=== PATIENT | female | born 1960 | race Caucasian/White ===

== ENCOUNTER 2016-05-30 19:01 | Inpatient (IN) | payer MEDICAID, OTHER ==
[~2016-05-30] VITALS: Ht 152.4 cm; Wt 66.4 kg
[~2016-05-30 19:01] MED LIST: HYDR-762 PO; ORPH100T PO; ZOF8 PO; [UNRECOGNIZED DRUG - CODE] PO
[2016-05-30] MEDS ORDERED: PANTOPRAZOLE 40 MG INJ IV STA (20:40)
[2016-05-30 21:07] LABS: BASOPHIL # 0.1 10^3/ul (0.0-0.1); BASOPHILS % 0.8 % (0.0-2.0); EOSINOPHILS % 0.2 % (0.0-7.0); HEMATOCRIT 38.8 % (37.0-47.0); HEMOGLOBIN 12.8 g/dl (12.0-16.0); LYMPHOCYTES # 2.8 10^3/ul (0.8-2.9); LYMPHOCYTES % 24.7 % (15.0-51.0); MEAN CORPUSCULAR HEMOGLOBIN 28.9 pg (29.0-33.0); MEAN CORPUSCULAR HGB CONC 33.1 g/dl (32.0-37.0); MEAN CORPUSCULAR VOLUME 87.3 fl (82.0-101.0); MEAN PLATELET VOLUME 8.6 fl (7.4-10.4); MONOCYTE # 0.3 10^3/ul (0.3-0.9); MONOCYTES % 2.6 % (0.0-11.0); NEUTROPHIL # 8.2 10^3/ul (1.6-7.5); NEUTROPHILS % 71.7 % (39.0-77.0); PLATELET COUNT 153 10^3/UL (140-440); RED BLOOD COUNT 4.44 10^6/ul (4.20-5.40); RED CELL DISTRIBUTION WIDTH 15.6 % (11.5-14.5); UNCORRECTED WBC 11.4 10^3/ul (4.8-10.8); WHITE BLOOD COUNT 11.4 10^3/ul (4.8-10.8)
[2016-05-30 21:10] LABS: CONDITION 1; LH ANALYZER COMMENTS 1
[2016-05-30 21:17] LABS: INR 1.11; PROTIME 14.3 Sec (12.2-14.2); PT RATIO 1.1
[2016-05-30 21:18] LABS: PARTIAL THROMBOPLASTIN TIME 30.4 Sec (25.0-35.0)
--- NOTE | 2016-05-30 21:20 | RADRPT ---
PROCEDURE: XR Chest. CLINICAL INDICATION: Possible upper GI bleed TECHNIQUE: Single frontal view of the chest was obtained COMPARISON: 07/20/2014. FINDINGS: The heart and mediastinum are within normal limits. The lungs are clear. There is no pleural effusion or pneumothorax. IMPRESSION: No acute disease. RPTAT: [facility] Physician Araceli Date Time Electronically viewed and signed by Hemant Benedict Physician on 05/30/2016 21:20 RS/
[2016-05-30 21:40] LABS: ALBUMIN 3.6 g/dl (3.3-4.9); CHLORIDE 107 mmol/L (97-110)
[2016-05-30 21:41] LABS: POTASSIUM 4.2 mmol/L (3.5-5.1); SODIUM 143 mmol/L (135-144)
[2016-05-30 21:43] LABS: ALKALINE PHOSPHATASE 109 IU/L (42-121); ANION GAP 17 (8-16); ASPARTATE AMINO TRANSFERASE 65 IU/L (15-46); BILIRUBIN,INDIRECT 0.7 mg/dl (0-1.1); BILIRUBIN,TOTAL 0.7 mg/dl (0.2-1.3); CARBON DIOXIDE 23 mmol/L (21-31); CREATININE 0.58 mg/dl (0.44-1.00); TOTAL PROTEIN 7.6 g/dl (6.1-8.1)
[2016-05-30 21:44] LABS: ALANINE AMINOTRANSFERASE 51 IU/L (13-69); BLOOD UREA NITROGEN 35 mg/dl (7-20); CALCIUM 8.4 mg/dl (8.4-10.2); GLUCOSE 144 mg/dl (70-220)
[2016-05-30 21:56] LABS: TROPONIN-I < 0.012 ng/ml (0.00-0.12)
[2016-05-30] MEDS ORDERED: METF-382 PO (22:02)
[2016-05-30] MEDS ORDERED: ONDA8TAB83 PO (22:02)
[2016-05-30] MEDS ORDERED: CYCL-319 PO (22:03)
[2016-05-30] MEDS ORDERED: GABA300C16 PO (22:03)
[2016-05-30] MEDS ORDERED: BISA5TAB6 PO (22:04)
[2016-05-30] MEDS ORDERED: NAPR-688 PO (22:04)
[2016-05-30] MEDS ORDERED: CEPH500C PO (22:05)
--- NOTE | 2016-05-30 23:31 | ERA ---
ER Documentation Chief Complaint Date/Time DATE: 05/30/16 TIME: 20:45 Chief Complaint vomiting, abd pain secondary to abx tx s/p back surgery HPI 55-year-old female with a history of diabetes mellitus type 2, hep C from a blood transfusion and liver cirrhosis, status post lumbar disc surgery 2016 ambulatory to the ED complaining of a 1 day history of nausea with multiple episodes of hematemesis today. Denies abdominal pain, diarrhea or melanotic stools. No history of GI bleeding or esophageal varices. Denies chest pain or palpitations. No shortness of breath or cough. No fevers or chills. ROS All systems reviewed and are negative except as per history of present illness. Medications Home Meds Reported Medications Cephalexin* (Cephalexin*) 500 Mg Capsule, 500 MG PO TID, #28 CAP FOR 2 WEEKS 05/30/16 Bisacodyl* (Bisacodyl*) 5 Mg Tablet.dr, 5 MG PO DAILY Y for DIRECTED, TAB 05/30/16 Naproxen* (Naproxen*) 500 Mg Tablet, 500 MG PO BID, TAB 05/30/16 Gabapentin* (Gabapentin*) 300 Mg Capsule, 300 MG PO BID, #60 CAP 05/30/16 Cyclobenzaprine Hcl* (Cyclobenzaprine Hcl*) 10 Mg Tablet, 10 MG PO QHS, #60 TAB 05/30/16 Metformin Hcl* (Metformin Hcl*) 500 Mg Tablet, 500 MG PO WITH BREAKFAST DINNE, # 60 TAB 05/30/16 Ondansetron Hcl* (Ondansetron Hcl*) 8 Mg Tablet, 8 MG PO DAILY Y for NAUSEA AND OR VOMITING, TAB 05/30/16 Discontinued Reported Medications Ondansetron Hcl* (Zofran* ODT) 8 mg -ODT Tab.disper, 8 MG PO Q6H Y for NAUSEA AND OR VOMITING, TAB 07/21/14 Orphenadrine Citrate (Norflex) 100 Mg Tablet.sa, 100 MG PO Q12, TAB.SA 07/21/14 Diclofenac Sodium* (Voltaren* XR) 100 Mg Tab.sr.24h, 100 MG PO, TAB.SA 07/21/14 Hydrocodone Bit-Acetaminophen* (Marshall*) 10-325 Mg Tablet, 1 TAB PO DAILY for PAIN, TAB 07/21/14 Allergies Allergies: Coded Allergies: erythromycin base (Verified Allergy, Intermediate, NAUSEA, DIARRHEA, SICK , 05/30/16) PMhx/Soc Reviewed in chart. As per HPI. History of Surgery: Yes (back surgery 07/17/14, back surgery Apr 2016) Anesthesia Reaction: No Hx Neurological Disorder: No Hx Respiratory Disorders: No Hx Cardiac Disorders: No Hx Psychiatric Problems: No Hx Miscellaneous Medical Probl: Yes (DM2, hepatitis C, liver cirrhosis) Hx Alcohol Use: Yes (quit drinking 35 years ago) Hx Substance Use: No Hx Tobacco Use: Yes (2-3 cigarettes/ day) Smoking Status: Current every day smoker FmHx No cancer or stroke Physical Exam Vitals Vital Signs Date Time Temp Pulse Resp B/P Pulse Ox O2 Delivery O2 Flow Rate FiO2 05/30/16 20:57 Nasal Cannula 2 05/30/16 20:37 98.8 91 20 127/71 99 Room Air 05/30/16 19:06 98.7 86 20 118/74 98 Physical Exam Const: Alert, no acute distress. Head: Atraumatic Eyes: Normal Conjunctiva ENT: Normal External Ears, Nose and Mouth. Neck: Full range of motion. Nontender. Resp: Breath sounds are equal and clear to auscultation bilaterally Cardio: Regular rate and rhythm, no murmurs Abd: Soft, non tender, non distended. Normal bowel sounds. No masses or abnormal pulsations. Skin: No petechiae or rashes Back: No midline or flank tenderness. Healing lumbar incision. No purulent drainage or tenderness. Ext: No cyanosis, or edema Neur: Awake and alert. No focal deficit observed. Psych: Normal Mood and Affect Result Diagram: 05/31/1662105/31/16621 Results 24 hrs Laboratory Tests Test 05/30/16 03:00 05/30/16 20:50 Stool Occult Blood POSITIVE Activated Partial Thromboplast Time 30.4Sec Alanine Aminotransferase (ALT/SGPT) 51IU/L Albumin 3.6g/dl Albumin/Globulin Ratio 0.90 Alkaline Phosphatase 109IU/L Anion Gap 17 Aspartate Amino Transf (AST/SGOT) 65IU/L Basophils # 0.110^3/ul Basophils % 0.8% Blood Morphology Comment Blood Urea Nitrogen 35mg/dl Calcium Level 8.4mg/dl Carbon Dioxide Level 23mmol/L Chloride Level 107mmol/L Creatinine 0.58mg/dl Direct Bilirubin 0.00mg/dl Eosinophils # 0.010^3/ul Eosinophils % 0.2% Globulin 4.00g/dl Glucose Level 144mg/dl Hematocrit 38.8% Hemoglobin 12.8g/dl INR International Normalized Ratio 1.11 Indirect Bilirubin 0.7mg/dl Lymphocytes # 2.810^3/ul Lymphocytes % 24.7% Mean Corpuscular Hemoglobin 28.9pg Mean Corpuscular Hemoglobin Concent 33.1g/dl Mean Corpuscular Volume 87.3fl Mean Platelet Volume 8.6fl Monocytes # 0.310^3/ul Monocytes % 2.6% Neutrophils # 8.210^3/ul Neutrophils % 71.7% Nucleated Red Blood Cells # 0.010^3/ul Nucleated Red Blood Cells % 0.0/100WBC Platelet Count 31294^3/UL Potassium Level 4.2mmol/L Prothrombin Time 14.3Sec Prothrombin Time Ratio 1.1 Red Blood Count 4.4410^6/ul Red Cell Distribution Width 15.6% Sodium Level 143mmol/L Total Bilirubin 0.7mg/dl Total Protein 7.6g/dl Troponin I < 0.012ng/ml White Blood Count 11.410^3/ul Current Medications Medications (Trade) Dose Ordered Sig/Lexx Route PRN Reason Start Time Stop Time Status Last Admin Dose Admin Pantoprazole (Protonix Iv) 40 mg ONCE STAT IV 05/30/16 20:40 05/30/16 20:41 DC 05/30/16 21:03 Procedures/MDM DOCUMENTS REVIEWED: ED nurse, prior records MEDICAL DECISION MAKIN-year-old female with a history of diabetes mellitus type 2, hep C from a blood transfusion and liver cirrhosis, status post lumbar disc surgery 05/19/2016 ambulatory to the ED complaining of a 1 day history of nausea with multiple episodes of hematemesis today. Patient vomited approximately 100 cc of dark blood in triage but no active bleeding currently. Vital signs are stable. H&H is normal. Protonix given. Abdominal exam is unremarkable. Patient will be admitted to [facility] for GI consultation, further evaluation and management. Counseled patient regarding diagnosis, diagnostic results and plan for admission. CALLS/CONSULTS: Time 23:23 Dr. Jefferson, admit to Tele. PATIENT CARE TRANSITIONED: Time: 23:25 Dr. Jefferson. Departure Diagnosis: Primary Impression: Upper GI bleed Additional Impressions: Liver cirrhosis Qualified Code: K74.60 - Cirrhosis of liver without ascites, unspecified hepatic cirrhosis type Hepatitis C Qualified Code: B19.20 - Hepatitis C virus infection without hepatic coma, unspecified chronicity Diabetes mellitus type 2 in obese Condition: Serious LELE KRAMER MD May 30, 2016 23:29
[2016-05-31] VITALS (22 sets, daily range): BP systolic 81–195; BP diastolic 41–79; PULSE 72–106; RESP 14–20; TEMP 98.2; Ht 152.4 cm; Wt 66.4 kg
[2016-05-31] MEDS ORDERED: ONDANSETRON 4 MG INJ IV PRN
[2016-05-31] MEDS ORDERED: ACETAMINOPHEN 325 MG TAB PO PRN ×2 (02:30)
[2016-05-31] MEDS ORDERED: ONDANSETRON INJ 8 MG in DEXTROSE 5% 50 ML IV PRN (02:30)
[2016-05-31] MEDS ORDERED: BISACODYL (EC) 5 MG TAB PO PRN (02:30)
[2016-05-31] MEDS ORDERED: morphine 4 MG/ML VIAL IV PRN (02:30)
[2016-05-31] MEDS ORDERED: SOD CHLORIDE 0.9% 500 ML IV ONE (02:30)
[2016-05-31] MEDS ORDERED: GLUCAGON 1 MG INJ IM PRN (02:45)
[2016-05-31] MEDS ORDERED: DEXTROSE 50% 50 ML SYRINGE IV PRN ×2 (02:45)
[2016-05-31] MEDS ORDERED: GLUCOSE GEL 15 GRAM TUBE PO PRN ×2 (02:45)
[2016-05-31] MEDS ORDERED: GLUCOSE GEL 15 GRAM TUBE BUCCAL PRN (02:45)
[2016-05-31] MEDS: DEXTROSE 5%-0.45% NACL 1,000 ML IV SCH ×3 (02:54→22:30)
[2016-05-31] MEDS: LEVOFLOXACIN 500MG/D5W (PMX) 100 ML IVPB SCH (03:44)
[2016-05-31] MEDS ORDERED: PANTOPRAZOLE 40 MG INJ IV SCH (06:00)
[2016-05-31 07:03] LABS: BASOPHILS % 0.4 % (0.0-2.0); EOSINOPHILS % 0.3 % (0.0-7.0); HEMOGLOBIN 10.7 g/dl (12.0-16.0); LYMPHOCYTES # 2.6 10^3/ul (0.8-2.9); MEAN CORPUSCULAR HEMOGLOBIN 29.1 pg (29.0-33.0); MEAN CORPUSCULAR HGB CONC 33.4 g/dl (32.0-37.0); MEAN CORPUSCULAR VOLUME 87.1 fl (82.0-101.0); MEAN PLATELET VOLUME 8.6 fl (7.4-10.4); MONOCYTE # 0.4 10^3/ul (0.3-0.9); MONOCYTES % 5.9 % (0.0-11.0); NEUTROPHIL # 4.1 10^3/ul (1.6-7.5); NEUTROPHILS % 57.4 % (39.0-77.0); PLATELET COUNT 112 10^3/UL (140-440); RED BLOOD COUNT 3.67 10^6/ul (4.20-5.40); RED CELL DISTRIBUTION WIDTH 15.6 % (11.5-14.5); UNCORRECTED WBC 7.2 10^3/ul (4.8-10.8); WHITE BLOOD COUNT 7.2 10^3/ul (4.8-10.8)
[2016-05-31 07:07] LABS: CONDITION 1; LH ANALYZER COMMENTS 1
[2016-05-31 07:28] LABS: POTASSIUM 3.6 mmol/L (3.5-5.1)
[2016-05-31 07:31] LABS: CREATININE 0.56 mg/dl (0.44-1.00)
[2016-05-31 07:32] LABS: CALCIUM 8.4 mg/dl (8.4-10.2)
[2016-05-31] MEDS: INSULIN ASPART [NOVOLOG] 3 ML PEN SC SCH ×4 (07:55→21:00)
[2016-05-31] MEDS: GABAPENTIN 300 MG CAP PO SCH ×2 (09:13→21:10)
[2016-05-31] MEDS: INSULIN GLARGINE [LANtus] 3 ML PEN SC SCH (09:17)
--- NOTE | 2016-05-31 10:17 | CONS ---
Date/Time of Note Date/Time of Note DATE: 05/31/16 TIME: 10:15 Assessment/Plan Assessment/Plan Additional Assessment/Plan Anemia Hematemesis * EGD today with Dr. Veronica * Monitor hemoglobin every 6 hours, transfuse 2 units for hemoglobin less than 7.5 * PPI therapy Hepatitis C * Patient to start treatment outpatient Diabetes * Per patient well controlled with diet Further recommendations depend on clinical course Patient seen in collaboration with Dr. Veronica Consultation Date/Type/Reason Admit Date/Time May 30, 2016 at 23:31 Type of Consultation: Gastroenterology Reason for Consultation Hematemesis Hx of Present Illness 55-year-old female patient reports 2 episodes of hematemesis. Patient stated symptoms started abruptly last night. She denies previous episode, abdominal pain, diarrhea, fever, chills, shortness of breath, and alcohol abuse. Patient states she uses NSAIDs for back pain and reports that most 2 Aleve at night per day. Patient also reports recent history of melena stools for the last few days. Patient has past medical history of Hep C s/p blood transfusion in 1979 after giving in addition to diabetes which is well controlled with diet. Recommend EGD for further evaluation. Advised patient of risks/benefits/ alternatives to procedure patient is agreeable to proceed. Past Medical History Medical History: diabetes, other (Hepatitis C) Past Surgical History Past Surgical Hx: other (Back surgery) Social History Alcohol Use: rarely Smoking Status: Current every day smoker Exam/Review of Systems Vital Signs Vitals Vital Signs Date Time Temp Pulse Resp B/P Pulse Ox O2 Delivery O2 Flow Rate FiO2 05/31/16 08:20 80 05/31/16 04:00 98.0 18 106/60 98 05/31/16 01:45 Room Air 05/30/16 20:57 2 Intake and Output 05/30/16 05/30/16 05/31/16 15:00 23:00 07:00 Intake Total 225 ml Balance 225 ml Exam Constitutional: alert, oriented, well developed Psych: nl mood/affect Head: atraumatic Eyes: EOMI ENMT: nl external ears & nose, nl lips & teeth, nl nasal mucosa & septum Respiratory: normal air movement Cardiovascular: regular rate and rhythm Gastrointestinal: non-tender, soft Results Result Diagram: 05/31/16 0622 05/31/16621 Results 24 hrs Laboratory Tests Test 05/30/16 20:50 2/1/17 01:50 05/31/16 06:22 05/31/16 07:30 Activated Partial Thromboplast Time 30.4 Alanine Aminotransferase (ALT/SGPT) 51 Albumin 3.6 Albumin/Globulin Ratio 0.90 Alkaline Phosphatase 109 Anion Gap 17 H 16 Aspartate Amino Transf (AST/SGOT) 65 H Basophils # 0.1 0.0 Basophils % 0.8 0.4 Blood Morphology Comment Blood Urea Nitrogen 35 H 31 H Calcium Level 8.4 8.4 Carbon Dioxide Level 23 23 Chloride Level 107 109 Creatinine 0.58 0.56 Direct Bilirubin 0.00 Eosinophils # 0.0 0.0 Eosinophils % 0.2 0.3 Globulin 4.00 H Glucose Level 144 127 Hematocrit 38.8 32.0 L Hemoglobin 12.8 10.7 L INR International Normalized Ratio 1.11 Indirect Bilirubin 0.7 Lymphocytes # 2.8 2.6 Lymphocytes % 24.7 36.0 Mean Corpuscular Hemoglobin 28.9 L 29.1 Mean Corpuscular Hemoglobin Concent 33.1 33.4 Mean Corpuscular Volume 87.3 87.1 Mean Platelet Volume 8.6 8.6 Monocytes # 0.3 0.4 Monocytes % 2.6 5.9 Neutrophils # 8.2 H 4.1 Neutrophils % 71.7 57.4 Nucleated Red Blood Cells # 0.0 0.0 Nucleated Red Blood Cells % 0.0 0.0 Platelet Count 153 # 112 #L Potassium Level 4.2 3.6 Prothrombin Time 14.3 H Prothrombin Time Ratio 1.1 Red Blood Count 4.44 3.67 L Red Cell Distribution Width 15.6 H 15.6 H Sodium Level 143 144 Total Bilirubin 0.7 Total Protein 7.6 Troponin I < 0.012 White Blood Count 11.4 #H 7.2 # Bedside Glucose 120 132 Medications Medications Current Medications Ondansetron HCl/ Dextrose (Zofran Inj/D5W) 54 ml @ 108 mls/hr Q6H PRN IV NAUSEA AND/OR VOMITING; Start 05/31/16 at 02:30 Pantoprazole 40 mg 40 mg BID@06,18 IV Last administered on 05/31/16t 05:20; Admin Dose 40 MG; Start 05/31/16 at 06:00 Dextrose/Sodium Chloride (D5-1/2ns) 1,000 ml @ 100 mls/hr Q10H IV Last administered on 05/31/16 02:54; Admin Dose 100 MLS/HR; Start 05/31/16 at 02:30 Morphine Sulfate (morphine) 3 mg Q4H PRN IV PAIN; Start 05/31/16 at 02:30 Bisacodyl (Dulcolax) 5 mg DAILY PRN PO DIRECTED; Start 05/31/16 at 02:30 Cyclobenzaprine HCl (Flexeril) 10 mg QHS PO ; Start 05/31/16 at 21:00 Gabapentin 300 mg 300 mg BID PO Last administered on 05/31/16 09:13; Admin Dose 300 MG; Start 05/31/16 at 09:00 Levofloxacin/ Dextrose (Levaquin 500mg/ D5W 100 ml (Pmx)) 100 ml @ 100 mls/hr Q24H IVPB Last administered on 05/31/16 03:44; Admin Dose 100 MLS/HR; Start 05/31/16 at 03:00 Insulin Glargine (Lantus) 10 unit DAILY@08 SC Last administered on 05/31/16 09: 17; Admin Dose 10 UNIT; Start 05/31/16 at 08:00 Diagnostic Test (Pha) (Accucheck) 1 ea 02 XX ; Start 06/01/16 at 02:00 Acetaminophen (Tylenol Tab) 650 mg Q6H PRN PO PAIN AND OR ELEVATED TEMP; Start 05/31/16 at 02:30 Miscellaneous Information 1 ea NOTE XX ; Start 05/31/16 at 02:45 Glucose (Glutose) 15 gm Q15M PRN PO DECREASED GLUCOSE; Start 05/31/16 at 02:45 Glucose (Glutose) 22.5 gm Q15M PRN PO DECREASED GLUCOSE; Start 05/31/16 at 02:45 Dextrose (D50w Syringe) 25 ml Q15M PRN IV DECREASED GLUCOSE; Start 05/31/16 at 02:45 Dextrose (D50w Syringe) 50 ml Q15M PRN IV DECREASED GLUCOSE; Start 05/31/16 at 02:45 Glucagon (Glucagen) 1 mg Q15M PRN IM DECREASED GLUCOSE; Start 05/31/16 at 02:45 Glucose (Glutose) 15 gm Q15M PRN BUCCAL DECREASED GLUCOSE; Start 05/31/16 at 02: 45 JENY CREWS 1, 2017 10:17
--- NOTE | 2016-05-31 10:29 | HP ---
DATE OF ADMISSION: 05/30/2016 TIME SEEN: 2330. CHIEF COMPLAINT: Vomiting blood. HISTORY OF PRESENT ILLNESS: The patient is a 55-year-old female with a history of diabetes, hepatiti s C, liver cirrhosis, who presented to the emergency department with chief complaint of vomiting blo od. She said she has had multiple episodes of hematemesis for 1 day. She denied a history of GI ble ed or esophageal varices. She had lumbar surgery a week ago with limited results. She also complains of abdominal pain which she attributed to the antibiotic that she was given because she had lumbar surgery 10 days ago. The patient has no other complaints. She said that she acquired hepatitis C fr om a blood transfusion. When she presents to the ER vitals were stable. Hemoglobin almost 13. WBC 11.4, BUN 35, AST 55, ot herwise CBC and CMP are within normal limits. Chest x-ray no active disease. REVIEW OF SYSTEMS: A 12 point review of systems was performed and negative except as mentioned in HP I. PAST MEDICAL HISTORY: As per HPI. SOCIAL HISTORY: No tobacco, alcohol, or illicit drug use. ALLERGIES: ERYTHROMYCIN. HOME MEDICATION: 1. given cephalexin. 2. Cyclobenzaprine. 3. Gabapentin. 4. Naproxen. 5. Dulcolax. 6. Zofran. 7. Metformin. PHYSICAL EXAMINATION: VITAL SIGNS: Blood pressure 127/71, heart rate 91, respiration rate 20, temperature 98.8. Oxygen sa turation 99% on room air. Vitals stable. GENERAL: No acute distress. Neck was supple. Alert and oriented. HEENT: No obvious head deformity. Pupils equal, round and react to light. Extraocular muscles intac t. CARDIOVASCULAR: Tachycardic with regular rhythm. LUNGS: Clear. ABDOMEN: Soft. There is minimal tenderness diffusely to deep palpation with no guarding, rebound te nderness, no rigidity. EXTREMITIES: No edema. NEUROLOGIC: No focal deficits. LABORATORY DATA: Pertinent positives as mentioned in the HPI. IMAGING: Chest x-ray: No active disease. IMPRESSION: 1. Hematemesis, likely from given history of cirrhosis. 2. Hepatitis C cirrhosis. 3. History of diabetes. 4. History of recent lumbar surgery. PLAN: We will keep n.p.o. We will monitor her hemoglobin closely. We will place a GI consult. She will be placed on an IV PPI. We will monitor her vitals closely. For diabetes she will be on insul in while in house. Further workup and management per clinical course. Dictated By: KIMBER FLORES/MANDY Conf#: [id number] DID#: [id number]
[2016-05-31] MEDS: PANTOPRAZOLE IV 80 MG in SOD CHLORIDE 0.9% 100 ML IV SCH ×2 (12:34→22:33)
--- NOTE | 2016-05-31 15:18 | PN ---
Date/Time of Note Date/Time of Note DATE: 05/31/16 TIME: 15:02 Assessment/Plan VTE Prophylaxis VTE Prophylaxis Intervention: SCD's Lines/Catheters IV Catheter Type (from Nrs): Peripheral IV Urinary Cath still in place: No Assessment/Plan Chief Complaint/Hosp Course 1. Hematemesis with melena 2/2 NSAID use vs Varices from possible Cirrhosis -GI consult appreciated, plan is for EGD today 2. Hepatitis C cirrhosis -plan is for out-pt Rx 3. History of diabetes -cont Insulin, NISS 4. History of recent lumbar surgery pain control PPx- SCD's Problems: Subjective 24 Hr Interval Summary Constitutional: no complaints Exam/Review of Systems Vital Signs Vitals Vital Signs Date Time Temp Pulse Resp B/P Pulse Ox O2 Delivery O2 Flow Rate FiO2 05/31/16 12:20 77 05/31/16 11:40 98.2 19 91/53 98 05/31/16 01:45 Room Air 05/30/16 20:57 2 Intake and Output 05/30/16 05/30/16 05/31/16 15:00 23:00 07:00 Intake Total 225 ml Balance 225 ml Exam Constitutional: alert, oriented Respiratory: clear to auscultation Cardiovascular: regular rate and rhythm Gastrointestinal: soft, No distended Musculoskeletal: nl extremities to inspection Results Result Diagram: 05/31/1662105/31/16 0622 Results 24 hrs Laboratory Tests Test 05/30/16 20:50 05/31/16 01:50 05/31/16 06:22 05/31/16 07:30 Activated Partial Thromboplast Time 30.4 Alanine Aminotransferase (ALT/SGPT) 51 Albumin 3.6 Albumin/Globulin Ratio 0.90 Alkaline Phosphatase 109 Anion Gap 17 H 16 Aspartate Amino Transf (AST/SGOT) 65 H Basophils # 0.1 0.0 Basophils % 0.8 0.4 Blood Morphology Comment Blood Urea Nitrogen 35 H 31 H Calcium Level 8.4 8.4 Carbon Dioxide Level 23 23 Chloride Level 107 109 Creatinine 0.58 0.56 Direct Bilirubin 0.00 Eosinophils # 0.0 0.0 Eosinophils % 0.2 0.3 Globulin 4.00 H Glucose Level 144 127 Hematocrit 38.8 32.0 L Hemoglobin 12.8 10.7 L INR International Normalized Ratio 1.11 Indirect Bilirubin 0.7 Lymphocytes # 2.8 2.6 Lymphocytes % 24.7 36.0 Mean Corpuscular Hemoglobin 28.9 L 29.1 Mean Corpuscular Hemoglobin Concent 33.1 33.4 Mean Corpuscular Volume 87.3 87.1 Mean Platelet Volume 8.6 8.6 Monocytes # 0.3 0.4 Monocytes % 2.6 5.9 Neutrophils # 8.2 H 4.1 Neutrophils % 71.7 57.4 Nucleated Red Blood Cells # 0.0 0.0 Nucleated Red Blood Cells % 0.0 0.0 Platelet Count 153 # 112 #L Potassium Level 4.2 3.6 Prothrombin Time 14.3 H Prothrombin Time Ratio 1.1 Red Blood Count 4.44 3.67 L Red Cell Distribution Width 15.6 H 15.6 H Sodium Level 143 144 Total Bilirubin 0.7 Total Protein 7.6 Troponin I < 0.012 White Blood Count 11.4 #H 7.2 # Bedside Glucose 120 132 Test 05/31/16 11:05 Bedside Glucose 128 Medications Medications Current Medications Ondansetron HCl 8 mg/Dextrose 54 ml @ 108 mls/hr Q6H PRN IV NAUSEA AND/OR VOMITING; Start 05/31/16 at 02:30 Dextrose/Sodium Chloride (D5-1/2ns) 1,000 ml @ 100 mls/hr Q10H IV Last administered on 05/31/16 12:34; Admin Dose 100 MLS/HR; Start 05/31/16 at 02:30 Morphine Sulfate (morphine) 3 mg Q4H PRN IV PAIN; Start 05/31/16 at 02:30 Bisacodyl (Dulcolax) 5 mg DAILY PRN PO DIRECTED; Start 05/31/16 at 02:30 Cyclobenzaprine HCl (Flexeril) 10 mg QHS PO ; Start 05/31/16 at 21:00 Gabapentin 300 mg 300 mg BID PO Last administered on 05/31/16 09:13; Admin Dose 300 MG; Start 05/31/16 at 09:00 Levofloxacin/ Dextrose (Levaquin 500mg/ D5W 100 ml (Pmx)) 100 ml @ 100 mls/hr Q24H IVPB Last administered on 05/31/16 03:44; Admin Dose 100 MLS/HR; Start 05/31/16 at 03:00 Insulin Glargine (Lantus) 10 unit DAILY@08 SC Last administered on 05/31/16 09: 17; Admin Dose 10 UNIT; Start 05/31/16 at 08:00 Diagnostic Test (Pha) (Accucheck) 1 ea 02 XX ; Start 06/01/16 at 02:00 Acetaminophen (Tylenol Tab) 650 mg Q6H PRN PO PAIN AND OR ELEVATED TEMP; Start 05/31/16 at 02:30 Miscellaneous Information 1 ea NOTE XX ; Start 05/31/16 at 02:45 Glucose (Glutose) 15 gm Q15M PRN PO DECREASED GLUCOSE; Start 05/31/16 at 02:45 Glucose (Glutose) 22.5 gm Q15M PRN PO DECREASED GLUCOSE; Start 05/31/16 at 02:45 Dextrose (D50w Syringe) 25 ml Q15M PRN IV DECREASED GLUCOSE; Start 05/31/16 at 02:45 Dextrose (D50w Syringe) 50 ml Q15M PRN IV DECREASED GLUCOSE; Start 05/31/16 at 02:45 Glucagon (Glucagen) 1 mg Q15M PRN IM DECREASED GLUCOSE; Start 05/31/16 at 02:45 Glucose 15 gm 15 gm Q15M PRN BUCCAL DECREASED GLUCOSE; Start 05/31/16 at 02:45 Pantoprazole/ Sodium Chloride (Protonix Iv/NS) 100 ml @ 10 mls/hr Q10H IV Last administered on 05/31/16 12:34; Admin Dose 10 MLS/HR; Start 05/31/16 at 12: 00 NATALIYA NATARAJAN May 31, 2016 15:12
[2016-05-31] MEDS ORDERED: SOD CHLORIDE 0.9% 1,000 ML IV ONE (16:00)
[2016-05-31] MEDS ORDERED: PROPOFOL 20 ML ONE (17:13)
[2016-05-31] MEDS ORDERED: MIDAZOLAM 1 MG/ML 2 ML INJ ONE (17:13)
[2016-05-31] MEDS ORDERED: FENTAnyl 50 MCG/ML VIAL ONE (17:13)
[2016-05-31] MEDS ORDERED: CYCLOBENZAPRINE 10 MG TAB PO SCH (21:00)
[2016-06-01] VITALS (7 sets, daily range): BP systolic 99–132; BP diastolic 52–77; PULSE 81–93; RESP 18–20
[2016-06-01] MEDS ORDERED: ACCUCHECK XX SCH (02:00)
[2016-06-01] MEDS: LEVOFLOXACIN 500MG/D5W (PMX) 100 ML IVPB SCH (03:11)
[2016-06-01] MEDS: DEXTROSE 5%-0.45% NACL 1,000 ML IV SCH ×2 (06:25→08:30)
--- NOTE | 2016-06-01 06:38 | GILP ---
DATE OF PROCEDURE: 05/31/2016 SURGEON: Kyle Veronica MD. PROCEDURE: Esophagogastroduodenoscopy with endoscopic variceal ligation and biopsies. PREMEDICATION: Monitored anesthesia care by anesthesiologist. TECHNIQUE: After informed consent, with the patient/relatives understanding the procedure, its indic ations, potential risks and complications, including but not limited to: allergic reaction, bleeding , perforation or infection, and after all pertinent questions were answered to the patients satisfac tion, the patient/relatives signed witnessed informed consent. Following this, premedication was administered slowly IV push under careful cardiovascular and respi ratory monitoring with pulse oximetry, automatic blood pressure and assistant analyst. Once the sedative effect was achieved the patient was place in the left lateral decubitus, the panen doscope was introduced and advanced under visual control. INSTRUMENT USED: Olympus panendoscope. Careful examination of the upper gastrointestinal tract, both on insertion as well as withdrawal of the instrument disclosed the following findings: ESOPHAGUS: The distal esophagus shows significant esophageal varices, greatest at III/IV. Upon completion of examination, the banding device was attached to the tip of the instrument and 4 b ands were applied without complications. STOMACH: Upon entrance into the stomach, air was insufflated, the gastric samayoa distended normally. There is congestion and erythema consistent with portal hypertensive gastropathy and there are sev eral ulcerations in the antrum of the stomach, which are small. Biopsies were obtained to rule out H. pylori infection. PYLORUS: The pylorus appears patent and within normal limits, with no evidence of gastric outlet obs truction. DUODENUM: The duodenal mucosa was carefully examined in the duodenal bulb as well as the second port ion of the duodenum and appears unremarkable with no evidence of duodenitis, ulcer or neoplasm. The instrument was then withdrawn, the patient tolerated the procedure well and was transfer out of the endoscopy suite awake, and in good condition to continue recovery under observation IMPRESSION: 1. Grade III/IV esophageal varices, post endoscopic variceal ligation. 2. Multiple small antral gastric ulcerations, rule out Helicobacter pylori infection. Biopsies wer e obtained. 3. Portal gastropathy. PLAN: The patient will be treated with PPIs. Pathology will be reviewed as soon as available EGD i n 3 months is recommended. Dictated By: KYLE VERONICA MS/MANDY Conf#: [id number] [facility]#: [id number]
[2016-06-01] MEDS: INSULIN ASPART [NOVOLOG] 3 ML PEN SC SCH ×2 (07:55→11:50)
[2016-06-01 08:24] LABS: BASOPHILS % 0.6 % (0.0-2.0); EOSINOPHILS # 0.1 10^3/ul (0.0-0.5); HEMATOCRIT 30.6 % (37.0-47.0); HEMOGLOBIN 10.5 g/dl (12.0-16.0); LYMPHOCYTES # 2.6 10^3/ul (0.8-2.9); LYMPHOCYTES % 55.8 % (15.0-51.0); MEAN CORPUSCULAR HEMOGLOBIN 30.4 pg (29.0-33.0); MEAN CORPUSCULAR HGB CONC 34.4 g/dl (32.0-37.0); MEAN CORPUSCULAR VOLUME 88.3 fl (82.0-101.0); MEAN PLATELET VOLUME 8.1 fl (7.4-10.4); MONOCYTE # 0.3 10^3/ul (0.3-0.9); MONOCYTES % 6.3 % (0.0-11.0); NEUTROPHIL # 1.7 10^3/ul (1.6-7.5); NEUTROPHILS % 35.3 % (39.0-77.0); PLATELET COUNT 99 10^3/UL (140-440); RED BLOOD COUNT 3.46 10^6/ul (4.20-5.40); RED CELL DISTRIBUTION WIDTH 15.5 % (11.5-14.5); UNCORRECTED WBC 4.7 10^3/ul (4.8-10.8); WHITE BLOOD COUNT 4.7 10^3/ul (4.8-10.8)
[2016-06-01 08:30] LABS: CONDITION 1; LH ANALYZER COMMENTS 1
[2016-06-01 08:39] LABS: POTASSIUM 3.7 mmol/L (3.5-5.1)
[2016-06-01 08:42] LABS: CREATININE 0.67 mg/dl (0.44-1.00)
[2016-06-01 08:43] LABS: CALCIUM 8.3 mg/dl (8.4-10.2); MAGNESIUM 1.8 mg/dl (1.7-2.5)
[2016-06-01] MEDS: PANTOPRAZOLE IV 80 MG in SOD CHLORIDE 0.9% 100 ML IV SCH (08:49)
[2016-06-01] MEDS: GABAPENTIN 300 MG CAP PO SCH (08:49)
[2016-06-01] MEDS: INSULIN GLARGINE [LANtus] 3 ML PEN SC SCH (09:51)
--- NOTE | 2016-06-01 09:54 | CONS ---
Date/Time of Note Date/Time of Note DATE: 06/01/16 TIME: 09:52 Assessment/Plan Assessment/Plan Additional Assessment/Plan Anemia Hematemesis * EGD 05-31-16: 1. Grade III/IV esophageal varices, post endoscopic variceal ligation. 2. Multiple small antral gastric ulcerations, rule out Helicobacter pylori infection. Biopsies were obtained. 3. Portal gastropathy. * Recommend EGD in 3 months to evaluate * Monitor hemoglobin every 6 hours, transfuse 2 units for hemoglobin less than 7.5 * PPI therapy Hepatitis C * Patient to start treatment outpatient Diabetes * Per patient well controlled with diet Patient stable from GI standpoint Further recommendations depend on clinical course Patient seen in collaboration with Dr. Veronica Consultation Date/Type/Reason Admit Date/Time May 30, 2016 at 23:31 Initial Consult Date Type of Consultation: Gastroenterology 24 HR Interval Summary Free Text/Dictation Hemoglobin stable Advance diet to regular Stable from GI standpoint Exam/Review of Systems Vital Signs Vitals Vital Signs Date Time Temp Pulse Resp B/P Pulse Ox O2 Delivery O2 Flow Rate FiO2 06/01/16 09:44 93 06/01/16 08:22 98.4 18 101/77 97 05/31/16 18:27 Room Air 05/30/16 20:57 2 Intake and Output 05/31/16 05/31/16 06/01/16 15:00 23:00 07:00 Intake Total 240 ml 1765 ml Balance 240 ml 1765 ml Exam Constitutional: alert, oriented, well developed Psych: nl mood/affect Head: atraumatic Eyes: EOMI ENMT: nl external ears & nose, nl lips & teeth, nl nasal mucosa & septum Respiratory: normal air movement Cardiovascular: regular rate and rhythm Gastrointestinal: non-tender, soft Results Result Diagram: 06/01/16 0750 06/01/16 0750 Results 24 hrs Laboratory Tests Test 05/31/16 11:05 05/31/16 17:14 05/31/16 20:42 06/01/16 07:24 Bedside Glucose 128 86 156 114 Test 06/01/16 07:50 Anion Gap 12 Basophils # 0.0 Basophils % 0.6 Blood Morphology Comment Blood Urea Nitrogen 16 # Calcium Level 8.3 L Carbon Dioxide Level 26 Chloride Level 112 H Creatinine 0.67 Eosinophils # 0.1 Eosinophils % 2.0 Glucose Level 107 Hematocrit 30.6 L Hemoglobin 10.5 L Lymphocytes # 2.6 Lymphocytes % 55.8 H Magnesium Level 1.8 Mean Corpuscular Hemoglobin 30.4 Mean Corpuscular Hemoglobin Concent 34.4 Mean Corpuscular Volume 88.3 Mean Platelet Volume 8.1 Monocytes # 0.3 Monocytes % 6.3 Neutrophils # 1.7 Neutrophils % 35.3 L Nucleated Red Blood Cells # 0.0 Nucleated Red Blood Cells % 0.0 Platelet Count 99 L Potassium Level 3.7 Red Blood Count 3.46 L Red Cell Distribution Width 15.5 H Sodium Level 146 H White Blood Count 4.7 #L Medications Medications Current Medications Ondansetron HCl 8 mg/Dextrose 54 ml @ 108 mls/hr Q6H PRN IV NAUSEA AND/OR VOMITING; Start 05/31/16 at 02:30 Dextrose/Sodium Chloride (D5-1/2ns) 1,000 ml @ 100 mls/hr Q10H IV Last administered on 06/01/16 06:25; Admin Dose 100 MLS/HR; Start 05/31/16 at 02:30 Morphine Sulfate (morphine) 3 mg Q4H PRN IV PAIN; Start 05/31/16 at 02:30 Bisacodyl (Dulcolax) 5 mg DAILY PRN PO DIRECTED; Start 05/31/16 at 02:30 Cyclobenzaprine HCl (Flexeril) 10 mg QHS PO Last administered on 05/31/16 21:10 ; Admin Dose 10 MG; Start 05/31/16 at 21:00 Gabapentin 300 mg 300 mg BID PO Last administered on 05/31/16 21:10; Admin Dose 300 MG; Start 05/31/16 at 09:00 Levofloxacin/ Dextrose (Levaquin 500mg/ D5W 100 ml (Pmx)) 100 ml @ 100 mls/hr Q24H IVPB Last administered on 06/01/16 03:11; Admin Dose 100 MLS/HR; Start 05/31/16 at 03:00 Insulin Glargine (Lantus) 10 unit DAILY@08 SC Last administered on 05/31/16 09: 17; Admin Dose 10 UNIT; Start 05/31/16 at 08:00 Diagnostic Test (Pha) (Accucheck) 1 ea 02 XX ; Start 06/01/16 at 02:00 Acetaminophen (Tylenol Tab) 650 mg Q6H PRN PO PAIN AND OR ELEVATED TEMP Last administered on 05/31/16 21:12; Admin Dose 650 MG; Start 05/31/16 at 02:30 Miscellaneous Information 1 ea NOTE XX ; Start 05/31/16 at 02:45 Glucose (Glutose) 15 gm Q15M PRN PO DECREASED GLUCOSE; Start 05/31/16 at 02:45 Glucose (Glutose) 22.5 gm Q15M PRN PO DECREASED GLUCOSE; Start 05/31/16 at 02:45 Dextrose (D50w Syringe) 25 ml Q15M PRN IV DECREASED GLUCOSE; Start 05/31/16 at 02:45 Dextrose (D50w Syringe) 50 ml Q15M PRN IV DECREASED GLUCOSE; Start 05/31/16 at 02:45 Glucagon (Glucagen) 1 mg Q15M PRN IM DECREASED GLUCOSE; Start 05/31/16 at 02:45 Glucose 15 gm 15 gm Q15M PRN BUCCAL DECREASED GLUCOSE; Start 05/31/16 at 02:45 Pantoprazole/ Sodium Chloride (Protonix Iv/NS) 100 ml @ 10 mls/hr Q10H IV Last administered on 05/31/16 22:33; Admin Dose 10 MLS/HR; Start 05/31/16 at 12: 00 JENY CREWS Jun 01, 2016 09:54
[2016-06-01] MEDS ORDERED: PANT40TA3 PO (11:53)
--- NOTE | 2016-06-01 11:54 | PDOCDIS ---
Discharge Instructions CONDITION Patient Condition: Good HOME CARE INSTRUCTIONS: Special Diet: DIABETIC ACTIVITY: Activity Restrictions: No Restrictions FOLLOW UP/APPOINTMENTS Appointments F/U WITH YOUR PCP IN 1-2 WEEKS NATALIYA NATARAJAN Jun 01, 2016 11:54
--- NOTE | 2016-06-02 04:24 | DS ---
DATE OF ADMISSION: 05/30/2016 DATE OF DISCHARGE: 06/01/2016 DISCHARGE DIAGNOSES: 1. Upper gastrointestinal bleed secondary grade III to IV esophageal varices status post ligation, now stable for discharge. The patient also has multiple inter-gastric ulcerations. Continue PPI. 2. Hepatitis C. Patient will be started o treatment as an outpatient. 3. Diabetes, well controlled with diet. 4. Chronic pain. The patient is following up with [employer]. HOSPITAL COURSE: The patient is a 55-year-old female with a history of diabetes, hepatitis C, liver cirrhosis, and chronic back pain. Patient presents with upper GI bleed for 1 day as well as melena . She was seen by GI, where she had an EGD that grade III to IV esophageal varices status post liga tion. The patient also had multiple small antral gastric ulcerations. Recommendation was EGD in 3 months to further evaluate. The patient received treatment for her hepatitis C as an outpatient. Th e patient was cleared for discharge per GI. On the day of discharge, the patient's vitals, labs, a nd physical exam were stable. She had no acute complaints and questions were answered. CONDITION ON DISCHARGE: Stable. DISPOSITION: To home. MEDICATIONS: The patient is to continue her usual home medications. She was given a new prescripti on for Protonix 40 mg daily. FOLLOWUP: She is to follow up with PCP in 1 to 2 weeks. The patient is also to follow up with ____ of hepatology for outpatient treatment for hepatitis C. The patient was also told to follow up with GI to receive an EGD in 3 months to further evaluate. Greater than 30 minutes was spent coordinating discharge of the patient. Dictated By: NATALIYA NATARAJAN MD BS/MANDY Conf#: [id number] DID#: [id number]
== END 2016-06-01 12:20 | disposition home or self-care (01) | DRG 370 ==
LOC: E/R 19:01 → TEL 23:31
PROVIDERS: ADMIT Internal Medicine; ATTEND Internal Medicine
PROC: 0W3P8ZZ Control Bleeding in Gastrointestinal Tract, Via Natural or Artificial Opening Endoscopic (ICD-10-PCS; principal; 2016-05-31 19:30)
DX: I85.01 Esophageal varices with bleeding (principal); K25.9 Gastric ulcer, unspecified as acute or chronic, without hemorrhage or perforation; E11.9 Type 2 diabetes mellitus without complications; I10 Essential (primary) hypertension; D64.9 Anemia, unspecified; K31.9 Disease of stomach and duodenum, unspecified; Z68.28 Body mass index [BMI] 28.0-28.9, adult; B19.20 Unspecified viral hepatitis C without hepatic coma; E66.9 Obesity, unspecified; G89.29 Other chronic pain
CPT/HCPCS: 36415; 71010; 80048; 80053; 82270; 82962; 83036; 83735; 84484; 85025; 85610; 85730; 86850; 86900; 86901; 87070; 87081; 88305; 88312; 93005; 96374; C9113; J1815; J1956; J2250; J3010; J7030; J7040; J7042